=== PATIENT | male | born 1980 | race Caucasian/White ===

== ENCOUNTER 2016-10-07 17:57 | Emergency (ER) | payer OTHER ==
[~2016-10-07] VITALS: Ht 185.4 cm; Wt 90.0 kg
[~2016-10-07 17:57] MED LIST: HYDR-762 PO; ZOF8 PO
[2016-10-07] MEDS ORDERED: DIPHENHYDRAMINE 50 MG INJ IV STA (19:18)
[2016-10-07] MEDS ORDERED: KETOROLAC 30 MG INJ IV STA (19:18)
[2016-10-07] MEDS ORDERED: SOD CHLORIDE 0.9% 1,000 ML IV STA (19:18)
[2016-10-07] MEDS ORDERED: METOCLOPRAMIDE 10 MG INJ IV STA (19:18)
--- NOTE | 2016-10-07 19:44 | RADRPT ---
PROCEDURE: CT head CLINICAL INDICATION: Headaches TECHNIQUE: Contiguous 2.5 mm axial images were obtained from the vertex to the skull base. No int ravenous contrast was administered. The calculated dose length product (DLP) = 728.23 mGy-cm. The CTDlvol = 44.68 mGy. One or more of the following dose reduction techniques were used: Automated e xposure control, adjustment of the mA and or KV according to patient size, or use of iterative recon struction technique. COMPARISON: None FINDINGS: There is no evidence of acute intracranial hemorrhage or acute territorial infarct. No mass or mass effect is seen on this noncontrast study. The ventricles and cisterns are normal in size and confi guration. The churchill-white matter differentiation is within normal limits. The visualized paranasal sinuses are normally aerated. The bony calvarium is unremarkable IMPRESSION: Unremarkable unenhanced CT of the brain RPTAT: HH .Ted Merida MD, Date Time Electronically viewed and signed by .Ted Merida MD, MD on 10/07/2016 19:43 .W/
[2016-10-07 19:56] VITALS: Ht 185.4 cm; Wt 90.0 kg
--- NOTE | 2016-10-07 19:59 | RADRPT ---
PROCEDURE: Soft tissue view of the neck CLINICAL INDICATION: Foreign body sensation TECHNIQUE: AP and lateral views of the neck was obtained. COMPARISON: None FINDINGS: The airway is patent. No radiopaque foreign body is seen. The epiglottis and aryepiglottic folds a re normal. The prevertebral soft tissues are normal. The osseous structures are intact. IMPRESSION: Unremarkable soft tissue views of the neck. RPTAT: HPN[facility] Physician Shay Date Time Electronically viewed and signed by Physician Shay on 10/07/2016 19:59 /
[2016-10-07 20:04] LABS: ADD SCAN DIFF NO
[2016-10-07 20:06] LABS: BASOPHILS % 0.7 % (0.0-2.0); EOSINOPHILS # 0.1 10^3/ul (0.0-0.5); EOSINOPHILS % 2.3 % (0.0-7.0); HEMOGLOBIN 17.6 g/dl (14.0-18.0); LYMPHOCYTES # 2.7 10^3/ul (0.8-2.9); LYMPHOCYTES % 44.8 % (15.0-51.0); MEAN CORPUSCULAR HEMOGLOBIN 32.5 pg (29.0-33.0); MEAN CORPUSCULAR HGB CONC 35.9 g/dl (32.0-37.0); MEAN CORPUSCULAR VOLUME 90.6 fl (82.0-101.0); MEAN PLATELET VOLUME 10.3 fl (7.4-10.4); MONOCYTE # 0.5 10^3/ul (0.3-0.9); MONOCYTES % 8.4 % (0.0-11.0); NEUTROPHIL # 2.6 10^3/ul (1.6-7.5); NEUTROPHILS % 43.3 % (39.0-77.0); PLATELET COUNT 204 10^3/UL (140-415); RED BLOOD COUNT 5.41 10^6/ul (4.70-6.10); RED CELL DISTRIBUTION WIDTH 11.8 % (11.5-14.5)
[2016-10-07 20:14] LABS: INR 0.92; PROTIME 12.4 Sec (12.2-14.2)
[2016-10-07 20:15] LABS: PARTIAL THROMBOPLASTIN TIME 34.8 Sec (25.0-35.0)
[2016-10-07 20:16] LABS: POTASSIUM 4.1 mmol/L (3.5-5.1)
[2016-10-07 20:18] LABS: CREATININE 0.87 mg/dl (0.61-1.24)
[2016-10-07 20:19] LABS: CALCIUM 9.9 mg/dl (8.4-10.2)
[2016-10-07] MEDS ORDERED: NAPR-260 PO (20:34)
[2016-10-07] MEDS ORDERED: ONDA4TAB8 PO (20:34)
--- NOTE | 2016-10-07 21:45 | ERD ---
ER Documentation Chief Complaint Date/Time DATE: 10/07/16 TIME: 21:38 Chief Complaint migraine thornton starting today; nausea complaint HPI This is a 36-year-old male presents to the ER complaining of a headache that started 5 days ago. Patient states that he has had a history of migraines and usually gets migraines once to twice a month. Patient states that today headache was severe and he states that he had an episode of syncope which lasted a few seconds. Patient tried taking Tylenol with codeine for the pain, which did not work. Headache is located on the right side and is throbbing in quality. He denies admits to photophobia. He denies any n/v/d. Patient denies any trauma. Patient states that he has a fb sensation in his throat. He denies any SOB of difficulty in swallowing. ROS 12 point review of systems was done, all negative except per HPI. Medications Home Meds Active Scripts Ondansetron Hcl* (Zofran*) 4 Mg Tablet, 4 MG PO Q6H for NAUSEA AND/OR VOMITING, #30 TAB Prov:DIAMOND RYAN 10/07/16 Naproxen* (Naprosyn*) 500 Mg Tablet, 500 MG PO BID Y for PAIN AND/OR INFLAMMATION, #30 TAB Prov:DIAMOND RYAN 10/07/16 Ondansetron Hcl* (Zofran* ODT) 8 mg -ODT Tab.disper, 8 MG PO Q6H Y for NAUSEA AND OR VOMITING, #10 TAB Prov:ERICKA VEGA MD 07/20/15 Hydrocodone Bit-Acetaminophen* (Lindsay*) 10-325 Mg Tablet, 1 TAB PO Q4H Y for PAIN for 15 Days, TAB Prov:ERICKA VEGA MD 07/20/15 Allergies Allergies: Coded Allergies: No Known Allergy (Unverified , 12/21/12) PMhx/Soc History of Surgery: Yes (BACK AND LEFT ARM SURGERY) Anesthesia Reaction: No Hx Neurological Disorder: Yes (MIGRAINES) Hx Respiratory Disorders: No Hx Cardiac Disorders: No Hx Psychiatric Problems: No Hx Miscellaneous Medical Probl: No Hx Alcohol Use: Yes (OCCASSIONALLY) Hx Substance Use: No Hx Tobacco Use: No Smoking Status: Never smoker Physical Exam Vitals Vital Signs Date Time Temp Pulse Resp B/P Pulse Ox O2 Delivery O2 Flow Rate FiO2 10/07/16 19:56 98.3 61 18 131/74 97 Physical Exam GENERAL: The patient is well developed and appropriate for usual state of health , in no apparent distress. HEENT: Atraumatic. Conjunctivae are pink. Pupils equal, round, and reactive to light. Extraocular muscles are grossly intact. Bilateral tympanic membranes are clear with no evidence of erythema, bulging or perforation. No sinus tenderness. No kissing tonsils, no uvular deviation. No foreign body is seen NECK: C-spine is soft and supple. There is no cervical lymphadenopathy. CHEST: Clear to auscultation bilaterally. There are no rales, wheezes or rhonchi. HEART: Regular rate and rhythm. No murmurs, clicks, rubs or gallops. EXTREMITIES: Equal pulses bilaterally. There is no peripheral clubbing, cyanosis or edema. No focal swelling or erythema. Full range of motion. Grossly neurovascularly intact. NEURO: Alert and oriented. Cranial nerves II through XII are intact. Motor strength in all 4 extremities with 5/5 strength. Sensation grossly intact. Normal speech and gait. Negative Rhomberg. +2 DTRs. SKIN: There is no apparent rash or petechia. The skin is warm and dry. Result Diagram: 10/07/16194710/07/161947 Results 24 hrs Laboratory Tests Test 10/07/16 19:48 White Blood Count 6.010^3/ul Red Blood Count 5.4110^6/ul Hemoglobin 17.6g/dl Hematocrit 49.0% Mean Corpuscular Volume 90.6fl Mean Corpuscular Hemoglobin 32.5pg Mean Corpuscular Hemoglobin Concent 35.9g/dl Red Cell Distribution Width 11.8% Platelet Count 49009^3/UL Mean Platelet Volume 10.3fl Neutrophils % 43.3% Lymphocytes % 44.8% Monocytes % 8.4% Eosinophils % 2.3% Basophils % 0.7% Nucleated Red Blood Cells % 0.0/100WBC Neutrophils # 2.610^3/ul Lymphocytes # 2.710^3/ul Monocytes # 0.510^3/ul Eosinophils # 0.110^3/ul Basophils # 0.010^3/ul Nucleated Red Blood Cells # 0.010^3/ul Prothrombin Time 12.4Sec Prothrombin Time Ratio 1.0 INR International Normalized Ratio 0.92 Activated Partial Thromboplast Time 34.8Sec Sodium Level 139mmol/L Potassium Level 4.1mmol/L Chloride Level 97mmol/L Carbon Dioxide Level 29mmol/L Anion Gap 17 Blood Urea Nitrogen 14mg/dl Creatinine 0.87mg/dl Glucose Level 102mg/dl Calcium Level 9.9mg/dl Current Medications Medications (Trade) Dose Ordered Sig/Kadie Route PRN Reason Start Time Stop Time Status Last Admin Dose Admin Sodium Chloride (NS) 1,000 ml @ 1,000 mls/hr Q1H STAT IV 10/07/16 19:18 10/07/16 20:17 DC 10/07/16 19:51 Metoclopramide HCl (Reglan) 10 mg ONCE STAT IV 10/07/16 19:18 10/07/16 19:20 DC 10/07/16 19:51 Ketorolac Tromethamine (Toradol) 30 mg ONCE STAT IV 10/07/16 19:18 10/07/16 19:20 DC 10/07/16 19:51 Diphenhydramine HCl (Benadryl) 25 mg ONCE STAT IV 10/07/16 19:18 10/07/16 19:20 DC 10/07/16 19:50 Procedures/MDM Differential Diagnosis includes but is not limited to; tension headache, migraine headache, cluster headache, sinus headache, nonspecific febrile headache, trigeminal neurologia, subdural hematoma, subarachnoid bleeding, meningitis, encephalitis. Patient is neurologically intact with no focal neurological deficits. Patient has had a history of migraine headaches, this is likely a migraine headache. Patient is afebrile and well-appearing. Patient will be sent home with naproxen and with Zofran. In regards to patient' s foreign body sensation in the throat, his x-ray is normal there is no evidence of epiglottitis or abscess. He needs to follow-up with his primary care doctor within 1-2 days return to ER sooner if symptoms worsen. My medical decision making was shared with the patient he understands and agrees with plan. Departure Diagnosis: Primary Impression: Headache Condition: Stable Patient Instructions: Self-Care for Headaches Referrals: ZITA BERNAL (PCP) Additional Instructions: Call your primary care doctor TOMORROW for an appointment during the next 1-2 days.See the doctor sooner or return here if your condition worsens before your appointment time. DIAMOND RYAN October 07, 2016 21:45
== END 2016-10-07 20:48 | disposition home or self-care (01) ==
LOC: FTE 17:57
DX: R51 Headache (principal); R55 Syncope and collapse
CPT/HCPCS: 36415; 70360; 70450; 80048; 85025; 85610; 85730; 96374; 96375; J1200; J1885; J2765; J7030; Z7502

== ENCOUNTER 2017-07-13 05:21 | Inpatient (IN) | END 2017-07-14 18:38 | disposition home or self-care (01) | DRG 520 ==